=== PATIENT | male | born 1940 | race Hispanic/Latino ===

== ENCOUNTER 2017-01-15 15:13 | Emergency (ER) | payer SELFPAY ==
[2017-01-15 15:25] VITALS: BP 174/94
[2017-01-15] MEDS ORDERED: PROVENTIL IH ONE (15:31)
[2017-01-15 16:08] LABS: Basophils % (Auto) 0.7 % (0.0-1.8); Eosinophils % (Auto) 4.8 % (0.0-4.3); Hematocrit 41.8 % (35.5-45.6); Hemoglobin 13.7 gm/dl (11.8-15.2); Mean Corpuscular HGB Conc 33 % (32-34); Mean Corpuscular Hemoglobin 29 pg (28-32); Mean Corpuscular Volume 87 fl (84-94); Platelet Count 238 K/mm3 (140-440); Red Blood Count 4.79 M/mm3 (3.65-5.03); Red Cell Distribution Width 13.9 % (13.2-15.2); White Blood Count 6.2 K/mm3 (4.5-11.0)
[2017-01-15 16:09] LABS: Anion Gap 18 mmol/L; Blood Urea Nitrogen 18 mg/dL (9-20); Calcium 8.8 mg/dL (8.4-10.2); Carbon Dioxide 27 mmol/L (22-30); Chloride 99.4 mmol/L (98-107); Glucose 115 mg/dL (75-100); Potassium 4.1 mmol/L (3.6-5.0); Sodium 140 mmol/L (137-145)
--- NOTE | 2017-01-18 14:57 | ED Elopement Review ---
ED Pt Elopement review - Results review Lab results: Laboratory Tests 01/15/17 01/15/17 15:32 15:32 WBC 6.2 RBC 4.79 Hgb 13.7 Hct 41.8 MCV 87 MCH 29 MCHC 33 RDW 13.9 Plt Count 238 Lymph % (Auto) 34.3 Carver % (Auto) 10.3 H Eos % (Auto) 4.8 H Baso % (Auto) 0.7 Lymph # 2.1 Carver # 0.6 Eos # 0.3 Baso # 0.0 Seg Neutrophils % 49.9 Seg Neutrophils # 3.1 Sodium 140 Potassium 4.1 Chloride 99.4 Carbon Dioxide 27 Anion Gap 18 BUN 18 Creatinine 0.8 Estimated GFR > 60 BUN/Creatinine Ratio 22.50 Glucose 115 H Calcium 8.8 Troponin T < 0.010 - Call Back decision Pt Call Back Decision: No action required
== END 2017-01-15 18:00 | disposition left against medical advice (07) ==
LOC: ED 15:13
DX: R07.9 Chest pain, unspecified (principal); Z53.21 Procedure and treatment not carried out due to patient leaving prior to being seen by health care provider
CPT/HCPCS: 36415; 80048; 84484; 85025; 93005; 93010